=== PATIENT | male | born 1930 | race Asian ===

== ENCOUNTER 2017-01-28 13:07 | Inpatient (IN) | payer OTHER ==
[~2017-01-28] VITALS: Ht 162.6 cm; Wt 49.9 kg
[~2017-01-28 13:07] MED LIST: BUFFERIN LOW DO81 M1 PO; CLINDAMYCIN HC300 MG PO; ENALAPRIL MALEA10 MG PO; FLO4 PO; GLIPIZIDE5 MG PO; GLU5 PO; LAC PO; LASIX20 MG PO; LEVAQUIN750 MG PO; LEVEMIR100 U/M1 SQ; METOPROLOL TART25 M1 PO; PYRIDIUM200 MG PO; SIMVASTATIN20 M1 PO; THERAGRAN-M1 TA4 PO; TRADJENTA5 M1 PO; VENTOLIN H0.09 MG/A1 IH
[2017-01-28 14:17] LABS: BASOPHIL % 0.3 % (0-2); PLATELET COUNT 184 x10^3mcL (130-400); RED CELL DISTRIBUTION WIDTH 13.4 % (11.5-14.5)
[2017-01-28] MEDS ORDERED: METOPROLOL TART25 M1 PO (14:21)
[2017-01-28] MEDS ORDERED: TRADJENTA5 M1 PO (14:22)
[2017-01-28] MEDS ORDERED: NIFEDIPINE30 MG PO (14:22)
[2017-01-28] MEDS ORDERED: ASPIR 8181 MG PO (14:23)
[2017-01-28] MEDS ORDERED: ENALAPRIL MALEA10 MG PO (14:24)
[2017-01-28 14:32] LABS: CALCIUM 8.4 mg/dL (8.5-10.1); CARBON DIOXIDE 27.7 mmol/L (21-32); CHLORIDE SERUM 104 mmol/L (98-107); CREATININE SERUM 1.3 mg/dL (0.7-1.3); GLUCOSE SERUM 206 mg/dL (74-106); POTASSIUM SERUM 3.9 mmol/L (3.5-5.1); SODIUM SERUM 136 mmol/L (136-145)
[2017-01-28 14:45] LABS: ALKALINE PHOSPHATASE 71 U/L (46-116); ALT/SGPT 24 U/L (16-63); AST/SGOT 17 U/L (15-37); BILIRUBIN TOTAL 0.8 mg/dL (0.20-1.00); TOTAL PROTEIN, SERUM 7.6 g/dL (6.4-8.2)
[2017-01-28 14:47] LABS: CK-MB < 0.5 ng/mL (0-3.6); CREATINE KINASE 82 U/L (39-308)
[2017-01-28 14:48] LABS: ALBUMIN 3.1 g/dL (3.4-5.0)
[2017-01-28 17:25] LABS: UA SPECIFIC GRAVITY <=1.005 (1.005-1.035); microscopic required? YES; urine erythrocyte NEGATIVE (NEGATIVE)
[2017-01-28 18:01] LABS: CHOLESTEROL/HDL RATIO 4.5; MAGNESIUM 2.1 mg/dL (1.8-2.4); PHOSPHOROUS 3.3 mg/dL (2.5-4.9)
[2017-01-28 18:10] LABS: T3 TOTAL 0.86 ng/mL
[2017-01-28 18:18] LABS: FREE T4 1.06 ng/dL (0.76-1.46); FREE THYROXINE INDEX 2.6 ug/dL (1.4-4.5); T4(THYROXINE) 6.6 ug/dL (4.7-13.3)
[2017-01-28 18:29] VITALS: BP 194/68
[2017-01-28 21:11] VITALS: BP 142/46
[2017-01-29 05:41] VITALS: BP 159/50
[2017-01-29 07:10] LABS: BASOPHIL % 0.4 % (0-2); PLATELET COUNT 196 x10^3mcL (130-400); RED CELL DISTRIBUTION WIDTH 13.4 % (11.5-14.5)
[2017-01-29 07:19] LABS: CALCIUM 8.7 mg/dL (8.5-10.1); CARBON DIOXIDE 27.7 mmol/L (21-32); CHLORIDE SERUM 101 mmol/L (98-107); CREATININE SERUM 1.5 mg/dL (0.7-1.3); GLUCOSE SERUM 209 mg/dL (74-106); MAGNESIUM 2.6 mg/dL (1.8-2.4); PHOSPHOROUS 3.8 mg/dL (2.5-4.9); POTASSIUM SERUM 4.3 mmol/L (3.5-5.1); SODIUM SERUM 138 mmol/L (136-145)
[2017-01-29 09:42] VITALS: BP 149/42
[2017-01-29 14:05] VITALS: BP 145/44
[2017-01-29 18:05] VITALS: BP 136/48
[2017-01-29 21:04] VITALS: BP 144/45
[2017-01-30 05:36] VITALS: BP 122/59
[2017-01-30 07:02] LABS: BASOPHIL % 0.3 % (0-2); PLATELET COUNT 209 x10^3mcL (130-400); RED CELL DISTRIBUTION WIDTH 13.5 % (11.5-14.5)
[2017-01-30 07:17] LABS: CALCIUM 9.4 mg/dL (8.5-10.1); CARBON DIOXIDE 29.4 mmol/L (21-32); CHLORIDE SERUM 104 mmol/L (98-107); CREATININE SERUM 1.3 mg/dL (0.7-1.3); GLUCOSE SERUM 95 mg/dL (74-106); MAGNESIUM 2.5 mg/dL (1.8-2.4); SODIUM SERUM 140 mmol/L (136-145)
[2017-01-30 08:55] VITALS: BP 120/50
[2017-01-30 09:37] VITALS: BP 144/48
[2017-01-30 14:26] VITALS: BP 144/48
[2017-01-30] MEDS ORDERED: PROVENTIL0.09 MG/A1 INH (14:58)
[2017-01-30] MEDS ORDERED: LAC PO (15:04)
[2017-01-30] MEDS ORDERED: PREDNISONE20 MG PO (15:06)
[2017-01-30] MEDS ORDERED: NOR5 PO (15:16)
[2017-01-30] MEDS ORDERED: LEVAQUIN750 MG PO (15:28)
[2017-01-30] MEDS ORDERED: BD LACTINEX1.4 MG PO (15:28)
== END 2017-01-30 17:04 | disposition home or self-care (01) | DRG 190 ==
LOC: ED 13:07 → DU 16:46 → MU 01-30 06:43
PROVIDERS: Emergency Medicine; ADMIT Family Medicine
DX: J44.1 Chronic obstructive pulmonary disease with (acute) exacerbation (principal); J96.00 Acute respiratory failure, unspecified whether with hypoxia or hypercapnia; N17.0 Acute kidney failure with tubular necrosis; I50.43 Acute on chronic combined systolic (congestive) and diastolic (congestive) heart failure; N39.0 Urinary tract infection, site not specified; E44.0 Moderate protein-calorie malnutrition; Z68.1 Body mass index [BMI] 19.9 or less, adult; I42.9 Cardiomyopathy, unspecified; I11.0 Hypertensive heart disease with heart failure; E11.65 Type 2 diabetes mellitus with hyperglycemia; E11.51 Type 2 diabetes mellitus with diabetic peripheral angiopathy without gangrene; E78.5 Hyperlipidemia, unspecified; Z79.4 Long term (current) use of insulin; Z87.891 Personal history of nicotine dependence; Z79.84 Long term (current) use of oral hypoglycemic drugs
CPT/HCPCS: 83880; 84439; J0696; J1815; J1940; J1956; J2930; J3475; J7030; J7613; J7620; J7644; Q0092

== ENCOUNTER 2018-01-14 11:13 | Emergency (ER) | payer OTHER ==
[~2018-01-14 11:13] MED LIST changes: +ASPIR 8181 MG PO; +BD LACTINEX1.4 MG PO; +NIFEDIPINE30 MG PO; +NOR5 PO; +PREDNISONE20 MG PO; +PROVENTIL0.09 MG/A1 INH
== END 2018-01-14 13:23 | disposition home or self-care (01) ==
LOC: ED 11:13
DX: L02.212 Cutaneous abscess of back [any part, except buttock and flank] (principal); I10 Essential (primary) hypertension; E11.9 Type 2 diabetes mellitus without complications; E78.00 Pure hypercholesterolemia, unspecified
CPT/HCPCS: 90715; J2001

== ENCOUNTER 2018-01-17 18:20 | Emergency (ER) | payer OTHER ==
[2018-01-17 18:36] VITALS: Ht 160 cm
[2018-01-17 18:56] VITALS: BP 143/50
== END 2018-01-17 18:56 | disposition home or self-care (01) ==
LOC: ED 18:20
DX: L02.212 Cutaneous abscess of back [any part, except buttock and flank] (principal); I10 Essential (primary) hypertension; E11.9 Type 2 diabetes mellitus without complications; E78.00 Pure hypercholesterolemia, unspecified; Z48.01 Encounter for change or removal of surgical wound dressing

== ENCOUNTER 2018-10-26 07:09 | Emergency (ER) | payer OTHER ==
[2018-10-26 08:09] LABS: BASOPHIL % 0.3 % (0-2); PLATELET COUNT 200 x10^3mcL (130-400); RED CELL DISTRIBUTION WIDTH 13.4 % (11.5-14.5)
[2018-10-26 08:13] LABS: CALCIUM 9.1 mg/dL (8.5-10.1); CARBON DIOXIDE 25.4 mmol/L (21-32); CHLORIDE SERUM 103 mmol/L (98-107); CREATININE SERUM 1.1 mg/dL (0.7-1.3); GLUCOSE SERUM 231 mg/dL (74-106); POTASSIUM SERUM 3.9 mmol/L (3.5-5.1); SODIUM SERUM 139 mmol/L (136-145)
[2018-10-26 08:26] LABS: ALBUMIN 3.5 g/dL (3.4-5.0); ALKALINE PHOSPHATASE 85 U/L (46-116); ALT/SGPT 32 U/L (16-63); AST/SGOT 18 U/L (15-37); BILIRUBIN TOTAL 0.8 mg/dL (0.20-1.00); CHOLESTEROL 144 mg/dL (<200); HDL CHOLESTEROL 56 mg/dL (40-60); T4(THYROXINE) 7.2 ug/dL (4.7-13.3); TOTAL PROTEIN, SERUM 7.8 g/dL (6.4-8.2); URIC ACID 6.5 mg/dL (3.5-7.2)
[2018-10-26 10:23] LABS: microscopic required? YES; urine erythrocyte TRACE (NEGATIVE)
[2018-10-26 10:39] VITALS: BP 163/61
== END 2018-10-26 11:55 | disposition home or self-care (01) ==
LOC: ED 07:09
PROVIDERS: Emergency Medicine
DX: M10.072 Idiopathic gout, left ankle and foot (principal); R82.71 Bacteriuria; E11.9 Type 2 diabetes mellitus without complications; I10 Essential (primary) hypertension; E78.00 Pure hypercholesterolemia, unspecified
CPT/HCPCS: 36415; J1100; J1885; Q0092